=== PATIENT | female | born 1940 | race Caucasian/White ===

== ENCOUNTER → 2017-01-09 | Outpatient (CLI) | payer MEDICARE, OTHER ==
--- NOTE | 2017-01-09 11:17 | REPMRS ---
Patient History The patient states she has not had a clinical breast exam in over a year. Patient is postmenopausal. Family history of colorectal cancer in maternal aunt at age 50 or over and colorectal cancer in paternal grandmother at age 50 or over. Taking unspecified hormones for 8 years. Digital Woman Screen Mammo: January 09, 2017 - Exam #: [id number] Bilateral CC and MLO view(s) were taken. Technologist: Merary Li Technologist Prior study comparison: October 12, 2015, digital woman screen mammo performed at [facility]. September 10, 2014, digital woman screen mammo performed at [facility]. FINDINGS: There are scattered fibroglandular densities. There has been no change in the appearance of the mammogram from the prior studies. There is a mild amount of residual fibroglandular tissue which is fairly symmetric. There is no interval development of dominant mass, architectural distortion, or clustered microcalcification suggestive of malignancy. ASSESSMENT: BI-RADS/ACR category 1 mammogram. Negative. Recommendation Routine screening mammogram in 1 year (for women over age 40). This mammogram was interpreted with the aid of an FDA-approved computer-aided dectection system. Electronically Signed By: Joao Velazquez MD 01/09/17 [id number]
--- NOTE | 2017-01-09 14:20 | REP ---
Thyroid ultrasound: Comparisons date 2015. The thyroid right lobe measures 4.2 x 2.0 x 1.9 cm. The thyroid left lobe measures 4.0 x 1.6 x 1.7 cm. The isthmus measures 1.1 mm thickness. These measurements are not significantly changed. There is a 1.1 x 0.8 and 0.7 cm complex nodule in the upper pole of the left lobe, not significantly changed. There is a 1.1 x 0.7 x 0.6 cm hyperechoic nodule in the lower pole medially, not present previously. There is a 0.5 x 0.6 x 0.4 centimeter cyst laterally in the right upper pole, not present previously. The thyroid parenchyma is diffusely heterogeneous, unchanged. Signed by Joao Reed MD 01/09/2017 02:12 P
== END ==
LOC: M WHC 09:34
PROVIDERS: ATTEND Family Medicine
DX: Z12.31 Encounter for screening mammogram for malignant neoplasm of breast (principal); E04.2 Nontoxic multinodular goiter
CPT/HCPCS: 76536; G0202

== ENCOUNTER → 2017-09-20 | Outpatient (CLI) | payer MEDICARE, OTHER | LOC: M WHC 09:52 | DX: E04.2 Nontoxic multinodular goiter (principal) | CPT/HCPCS: 76536 ==

== ENCOUNTER → 2018-03-06 | Outpatient (CLI) | payer MEDICARE, OTHER | LOC: M WHC 10:13 | DX: Z12.31 Encounter for screening mammogram for malignant neoplasm of breast (principal); M81.0 Age-related osteoporosis without current pathological fracture; N60.31 Fibrosclerosis of right breast; N60.32 Fibrosclerosis of left breast; M85.851 Other specified disorders of bone density and structure, right thigh; M85.852 Other specified disorders of bone density and structure, left thigh; M85.88 Other specified disorders of bone density and structure, other site | CPT/HCPCS: 77067 ==

== ENCOUNTER → 2019-05-27 | Outpatient (CLI) | payer MEDICARE, OTHER ==
--- NOTE | 2019-05-27 12:43 | REP ---
Clinical: Thyroid goiter. Technique: Real time butt scale and color evaluation using linear and curved array transducers. Comparison: 01/09/2017, 09/20/2017. Findings: Thyroid gland is diffusely heterogeneous and mildly enlarged. Right lobe measures 4.4 x 2.1 x 2.2 cm and includes 2.3 x 1.6 x 2.3 cm complex mid pole nodule and 6 x 5 x 3 mm complex upper pole cyst with debris. Left lobe measures 4.3 x 1.5 x 1.9 cm and includes 5 x 7 x 4 mm hypoechoic upper pole nodule and 10 x 7 x 6 mm hyperechoic upper pole nodule. Impression: Heterogeneous thyroid with multiple nonspecific nodules.
--- NOTE | 2019-05-27 13:43 | REPMRS ---
Patient History The patient states she had a clinical breast exam in 09/2018. Patient is postmenopausal and has history of other cancer at age 74. Family history of colorectal cancer at age 50 or over in paternal grandmother, colorectal cancer at age 50 or over in maternal aunt. Took unspecified hormones for 8 years. 3D TOMOSYNTHESIS WAS PERFORMED. The [facility] lifetime risk for breast cancer is 2.4%. Digital Woman Screen Mammo: May 27, 2019 - Exam #: [id number] Bilateral CC and MLO view(s) were taken. Technologist: Brionna Quiles, Technologist Prior study comparison: March 06, 2018, bilateral digital woman screen mammo performed at [facility]. January 09, 2017, digital woman screen mammo performed at [facility]. FINDINGS: The breast tissue is heterogeneously dense. This may lower the sensitivity of mammography. There has been no change in the appearance of the mammogram from the prior studies. There is a moderate amount of residual fibroglandular tissue which is fairly symmetric. There is no interval development of dominant mass, areas of architectural distortion, or clustered microcalcification typical of malignancy. Assessment: BI-RADS/ACR category 1 mammogram. Negative Mammogram. Recommendation Routine screening mammogram in 1 year (for women over age 40). This mammogram was interpreted with the aid of an FDA-approved computer-aided dectection system. Electronically Signed By: Joao Velazquez MD 05/27/19 [id number]
== END ==
LOC: M WHC 11:32
PROVIDERS: ATTEND Family Medicine
DX: Z12.31 Encounter for screening mammogram for malignant neoplasm of breast (principal); E04.9 Nontoxic goiter, unspecified; E07.9 Disorder of thyroid, unspecified; Z78.0 Asymptomatic menopausal state; Z85.9 Personal history of malignant neoplasm, unspecified; Z80.0 Family history of malignant neoplasm of digestive organs